=== PATIENT | female | born 1985 | race Caucasian/White ===

== ENCOUNTER → 2019-07-31 | Emergency (ER) | payer SELFPAY ==
[~2019-07-31] VITALS: Ht 162.6 cm; Wt 59.0 kg
[2019-07-31 20:28] VITALS: BP_SYST 107
--- NOTE | 2019-07-31 22:49 | NUR ---
Note omar in ED - 07/31/19 at 2253 by [id number] Patient to [facility] 07 to [facility] for evaluation. Side rails up.
--- NOTE | 2019-07-31 22:53 | NUR ---
PATIENT CALLED TO ROOM NOT IN WAITING IN ROOM
== END | disposition still patient (30) ==
LOC: SED 20:03
DX: R10.30 Lower abdominal pain, unspecified (principal); Z53.21 Procedure and treatment not carried out due to patient leaving prior to being seen by health care provider